=== PATIENT | female | born 1965 | race Caucasian/White ===

== ENCOUNTER 2017-01-10 08:46 | Emergency (ER) | payer BC ==
--- NOTE | ~2017-01-10 | CR126 ---
[facility] A Service of [facility] & [facility] RADIOLOGY TEXT RESULTS PATIENT: LISSET KENYON LOCATION: [facility] : [id number] UNIT #: [id number] AGE: [address]: June Bhatia APRN SEX: F ORDER DR: [id number] [facility] [address] [place], [place] [address] [id number] E MR#: [id number] #: [id number] NAME: LISSET KENYON : 1965 SEX: F STUDY DATE/TIME: 01/10/2017 09:55 UNIT: [facility] ROOM: STUDY DESCRIPTION: CR Foot Complete Min 3 View Lt Attending Physician: June Bhatia A.P.R.N. Ordering Physician: Ed Doctor [id number] [facility] Primary Care Physician: Jason Reece MEDICAL IMAGING REPORT This report is preliminary unless electronic signature is present EXAM Left foot 3 views, 01/10/2017 09:55 hours HISTORY Left foot pain since 01/06/2017. Patient has a open wound and oozing between the fourth and fifth toes. COMPARISON None FINDINGS AP, lateral and oblique views are performed. There is flattening of the medial aspect of the distal first metatarsal likely from prior shave bunionectomy. Correlate with any additional surgical history. There is mild joint space loss at the first metatarsophalangeal joint. Patient has healed former oblique fractures of the midshaft of the fourth and fifth metatarsals with no acute metatarsal fracture seen. There is soft tissue gas between the fourth and fifth toes. There is no associated bone lesion or foreign body. IMPRESSION 1. Soft tissue air in the soft tissues between the fourth and fifth toes with no foreign body seen. No adjacent bone changes. 2. Flattening of the medial aspect distal first metatarsal suggesting prior shave bunionectomy. 3. Old healed oblique fractures of the midshaft fourth and fifth metatarsals. No acute metatarsal fracture. Dictated by... Jayda James M.D. THIS IS AN ELECTRONICALLY VERIFIED REPORT Jayda James M.D. at 01/10/2017 2:31 PM [facility] A Service of [facility] & [facility] RADIOLOGY TEXT RESULTS PATIENT: LISSET KENYON LOCATION: [facility] : [id number] UNIT #: [id number] AGE: [address]: June Bhatia APRN SEX: F ORDER DR: Josette TD: 01/10/2017 10:57 JOB #: [id number] MEDICAL IMAGING REPORT Page 1 of 1 COPY
[~2017-01-10 08:46] MED LIST: "\\\"BP MED\\\""; CELEXA PO; COMBIVENT MININEB INH; LEVAQUIN PO; PROTONIX PO; TRIAMTERENE/HCTZ PO
== END 2017-01-10 11:15 | disposition home or self-care (01) ==
LOC: CED 08:46
DX: L03.116 Cellulitis of left lower limb (principal); I10 Essential (primary) hypertension; Z79.899 Other long term (current) drug therapy; Z88.5 Allergy status to narcotic agent
CPT/HCPCS: 73630; 99283